=== PATIENT | female | born 1995 | race Two or more races ===

== ENCOUNTER 2020-06-09 19:34 | Emergency (ER) | payer MEDICAID ==
[~2020-06-09] VITALS: Ht 165.1 cm; Wt 70.0 kg
[2020-06-09 22:02] LABS: CHLORIDE 107 mEq/L (98-107); EOSINOPHILS % 1.3 % (0.0-5.0); HEMATOCRIT. 35.3 % (36.0-48.0); HEMOGLOBIN. 11.4 g/dL (12.0-16.0); MEAN CORPUSCULAR HEMOGLOBIN 21.2 pg (28.0-32.0); MEAN CORPUSCULAR VOLUME 65.5 fL (81.0-99.0); MEAN PLATELET VOLUME 7.1 fl (7.4-10.4); NEUTROPHILS % 70.7 % (40.0-76.0); PLATELET 399 x1000/uL (130-400); RED BLOOD CELL COUNT 5.39 mill/uL (4.2-5.4); RED CELL DISTRIBUTION WIDTH 16.3 % (11.6-14.6)
[2020-06-09 22:23] LABS: PLATELET ESTIMATE NORMAL
[2020-06-09 23:25] VITALS: BP 123/70
== END 2020-06-09 23:50 | disposition home or self-care (01) ==
LOC: ER 19:34
DX: G24.9 Dystonia, unspecified (principal); R07.89 Other chest pain
CPT/HCPCS: 36415; 80053; 84484; 85025; 93005; 99284

== ENCOUNTER 2022-09-06 00:06 | Emergency (ER) | payer MEDICAID ==
[~2022-09-06] VITALS: Ht 165.1 cm; Wt 76.0 kg
[2022-09-06 01:32] LABS: BASOPHILS % 0.7 % (0.0-2.0); HEMATOCRIT. 37.7 % (36.0-48.0); HEMOGLOBIN. 11.8 g/dL (12.0-16.0); LYMPHOCYTES % 29.9 % (20.0-50.0); MEAN CORPUSCULAR HEMOGLOBIN 20.6 pg (28.0-32.0); MEAN CORPUSCULAR VOLUME 65.6 fL (81.0-99.0); MEAN PLATELET VOLUME 6.6 fl (7.4-10.4); MONOCYTES % 8.8 % (2.0-8.0); NEUTROPHILS % 58.6 % (40.0-76.0); PLATELET 429 x1000/uL (130-400); RED BLOOD CELL COUNT 5.74 mill/uL (4.2-5.4); RED CELL DISTRIBUTION WIDTH 19.4 % (11.6-14.6)
[2022-09-06 01:42] LABS: CHLORIDE 107 mEq/L (98-107)
[2022-09-06 02:55] LABS: PLATELET ESTIMATE INCREASED
[2022-09-06 04:00] VITALS: BP 96/52
[2022-09-06] MEDS ORDERED: IBUP-2029 MT (04:25)
== END 2022-09-06 04:35 | disposition home or self-care (01) ==
LOC: ER 00:06
DX: R10.84 Generalized abdominal pain (principal); R07.89 Other chest pain
CPT/HCPCS: 36415; 80053; 85025; 93005; 99284